=== PATIENT | female | born 1985 | race Two or more races ===

== ENCOUNTER → 2021-05-18 | Outpatient (REF) | LOC: M EMP 16:43 | PROVIDERS: ATTEND Family Medicine | DX: Z20.828 Contact with and (suspected) exposure to other viral communicable diseases (principal) ==

== ENCOUNTER → 2021-05-22 | Outpatient (REF) | LOC: M EMP 08:09 | PROVIDERS: ATTEND Family Medicine | DX: Z20.828 Contact with and (suspected) exposure to other viral communicable diseases (principal) ==

== ENCOUNTER → 2021-10-26 | Outpatient (CLI) | payer OTHER | LOC: M PLARAD 08:04 | PROVIDERS: ATTEND Physician Assistant Medical | DX: D18.03 Hemangioma of intra-abdominal structures (principal); N28.1 Cyst of kidney, acquired ==

== ENCOUNTER → 2022-03-18 | Outpatient (REF) | LOC: M LABSMTC 09:38 | PROVIDERS: ATTEND Family Medicine | DX: Z20.822 Contact with and (suspected) exposure to COVID-19 (principal) ==

== ENCOUNTER → 2023-05-05 | Outpatient (REF) | LOC: M EMP 08:26 | PROVIDERS: ATTEND Family Medicine | DX: Z11.52 Encounter for screening for COVID-19 (principal) ==

== ENCOUNTER 2023-06-05 14:42 | Emergency (ER) | payer OTHER ==
[~2023-06-05] VITALS: Ht 165.1 cm; Wt 89.5 kg
[2023-06-05 15:26] LABS: BASO # 0.1 10^3/uL (0.0-0.2); BASO % 0.6 % (0.0-1.0); EOS # 0.1 10^3/uL (0.0-0.5); EOS % 0.9 % (0.0-3.0); HEMATOCRIT 40.3 % (36.0-47.0); HEMOGLOBIN 13.2 g/dl (12.0-15.5); LYMPH # 2.2 10^3/uL (1.5-5.0); LYMPH % 27.3 % (24.0-44.0); MEAN CORPUSCULAR HEMOGLOBIN 28.2 pg (27.0-33.0); MEAN CORPUSCULAR HGB CONC 32.8 g/dl (32.0-36.5); MEAN CORPUSCULAR VOLUME 86.1 fl (80.0-96.0); MONO # 0.5 10^3/uL (0.0-0.8); MONO % 6.1 % (2.0-8.0); NEUTROPHILS # 5.2 10^3/uL (1.5-8.5); NEUTROPHILS % 64.7 % (36.0-66.0); PLATELET COUNT, AUTOMATED 269 10^3/uL (150-450); RED BLOOD COUNT 4.68 10^6/uL (4.00-5.40)
[2023-06-05 16:03] LABS: ALBUMIN 4.2 G/DL (3.2-5.2); ALKALINE PHOSPHATASE 59 U/L (46-116); ALT/SGPT 19 U/L (7.0-40); AST/SGOT 12 U/L (<34); BILIRUBIN,TOTAL 0.5 MG/DL (0.3-1.2); BLOOD UREA NITROGEN 9 MG/DL (9-23); CALCIUM LEVEL 9.1 MG/DL (8.5-10.1); CARBON DIOXIDE LEVEL 24 MMOL/L (20-31); CHLORIDE LEVEL 107 MMOL/L (98-107); CREATININE FOR GFR 0.68 MG/DL (0.55-1.30); GLOMERULAR FILTRATION RATE > 60.0 (>58); GLUCOSE, FASTING 83 MG/DL (60-100); SODIUM LEVEL 138 MMOL/L (136-145); TOTAL PROTEIN 7.2 G/DL (5.7-8.2)
[2023-06-05] MEDS ORDERED: EMTR1TAB16 PO (16:04)
[2023-06-05] MEDS ORDERED: RALT40TA PO (16:04)
[2023-06-05 16:05] LABS: HCG, SERUM QUALITATIVE NEGATIVE (NEGATIVE)
[2023-06-05 16:06] LABS: HEPATITIS B SURFACE ANTIBODY POSITIVE (POSITIVE)
[2023-06-05] MEDS ORDERED: EXPOSURE KIT-ADULT 7 DAY SUPPLY PO ONE (16:10)
[2023-06-05] MEDS ORDERED: RALTEGRAVIR 400 MG TAB (ISENTRESS) PO ONE (16:15)
[2023-06-05] MEDS ORDERED: TRUVADA 200MG/300MG TABLET PO ONE (16:15)
[2023-06-05 16:31] LABS: HIV SCREEN CENTAUR EXPOSED NEGATIVE (NEGATIVE)
[2023-06-05 16:39] LABS: HEPATITIS C VIRUS ABY INDEX 0.06 INDEX (<0.8)
[2023-06-05 17:00] VITALS: BP 124/74; TEMP 98; O2SAT 99
[2023-06-06] MEDS ORDERED: RALTEGRAVIR 400 MG TAB (ISENTRESS) PO SCH
[2023-06-06] MEDS ORDERED: TRUVADA 200MG/300MG TABLET PO SCH
== END 2023-06-05 17:02 | disposition home or self-care (01) ==
LOC: M ED 14:42
DX: Z77.21 Contact with and (suspected) exposure to potentially hazardous body fluids (principal); W46.0XXA Contact with hypodermic needle, initial encounter; Y92.9 Unspecified place or not applicable; Y93.89 Activity, other specified; Y99.0 Civilian activity done for income or pay; Z79.899 Other long term (current) drug therapy

== ENCOUNTER → 2023-07-31 | Outpatient (CLI) | payer OTHER ==
[~2023-07-31] MED LIST: EMTR1TAB16 PO; RALT40TA PO
== END ==
LOC: M WHC 14:09
PROVIDERS: ATTEND Nurse Practitioner Primary Care
DX: Z12.31 Encounter for screening mammogram for malignant neoplasm of breast (principal)

== ENCOUNTER → 2023-08-04 | Outpatient (CLI) | payer OTHER | LOC: M WHC 15:13 | PROVIDERS: ATTEND Nurse Practitioner Primary Care | DX: Z12.31 Encounter for screening mammogram for malignant neoplasm of breast (principal); R92.333 Mammographic heterogeneous density, bilateral breasts | CPT/HCPCS: 76641; 77065; G0279 ==

== ENCOUNTER → 2023-12-23 | Outpatient (CLI) | payer OTHER ==
[2023-12-23 10:49] LABS: HEMOGLOBIN 12.8 g/dl (12.0-15.5); MEAN CORPUSCULAR VOLUME 87.5 fl (80.0-96.0); PLATELET COUNT, AUTOMATED 294 10^3/uL (150-450); RED BLOOD COUNT 4.57 10^6/uL (4.00-5.40); WHITE BLOOD COUNT 6.8 10^3/uL (4.0-10.0)
[2023-12-23 10:59] LABS: ALKALINE PHOSPHATASE 65 U/L (46-116); ALT/SGPT 18 U/L (7.0-40); AST/SGOT < 8 U/L (<34); BILIRUBIN,TOTAL 0.5 MG/DL (0.3-1.2); BLOOD UREA NITROGEN 12 MG/DL (9-23); CALCIUM LEVEL 9.2 MG/DL (8.5-10.1); CARBON DIOXIDE LEVEL 27 MMOL/L (20-31); CHLORIDE LEVEL 108 MMOL/L (98-107); CHOLESTEROL LEVEL 159 MG/DL (<200); CREATININE FOR GFR 0.78 MG/DL (0.55-1.30); GLOMERULAR FILTRATION RATE > 60.0 (>58); GLUCOSE, FASTING 90 MG/DL (60-100); HDL CHOLESTEROL 54.7 MG/DL (>40); LDL CHOLESTEROL 87.7 MG/DL (<100); NON-HDL-C 104.3 MG/DL; POTASSIUM SERUM 4.5 MMOL/L (3.5-5.1); SODIUM LEVEL 140 MMOL/L (136-145); TOTAL PROTEIN 6.8 G/DL (5.7-8.2); TRIGLYCERIDES LEVEL 83 MG/DL (<150)
[2023-12-23 11:00] LABS: THYROXINE (T4) 8.7 UG/DL (4.5-10.9); TOTAL 25(OH) VITAMIN D 22.6 NG/ML (20.0-100.0)
[2023-12-23 11:01] LABS: THYROID STIMULATING HORMONE 1.499 uIU/ML (0.55-4.78)
[2023-12-23 11:31] LABS: HEMOGLOBIN A1c 5.2 % (4.0-6.0)
== END ==
LOC: M PLALAB 07:13
PROVIDERS: ATTEND Student in an Organized Health Care Education/Training Program
DX: M79.672 Pain in left foot (principal); M77.32 Calcaneal spur, left foot; Z13.9 Encounter for screening, unspecified

== ENCOUNTER → 2024-01-07 | Outpatient (CLI) | payer OTHER | LOC: M WHC 13:21 | PROVIDERS: ATTEND Nurse Practitioner Primary Care | DX: R92.8 Other abnormal and inconclusive findings on diagnostic imaging of breast (principal); R92.311 Mammographic fatty tissue density, right breast ==

== ENCOUNTER 2024-04-27 14:39 | Emergency (ER) | payer OTHER ==
[~2024-04-27] VITALS: Ht 162.6 cm; Wt 85.4 kg
[2024-04-27] MEDS ORDERED: VALA1TAB5 (15:20)
[2024-04-27] MEDS: FLUORESCEIN OPHTH 1MG STRIP OS ONE (15:27)
[2024-04-27] MEDS: KETOROLAC 30 MG/ML 1ML VIAL IV ONE (15:27)
[2024-04-27 15:44] LABS: BASO % 0.5 % (0.0-1.0); EOS # 0.1 10^3/uL (0.0-0.5); EOS % 1.2 % (0.0-3.0); HEMATOCRIT 40.6 % (36.0-47.0); HEMOGLOBIN 12.9 g/dl (12.0-15.5); LYMPH # 1.9 10^3/uL (1.5-5.0); LYMPH % 25.3 % (24.0-44.0); MEAN CORPUSCULAR HEMOGLOBIN 27.6 pg (27.0-33.0); MEAN CORPUSCULAR HGB CONC 31.8 g/dl (32.0-36.5); MEAN CORPUSCULAR VOLUME 86.8 fl (80.0-96.0); MONO # 0.6 10^3/uL (0.0-0.8); MONO % 8.3 % (2.0-8.0); NEUTROPHILS # 4.7 10^3/uL (1.5-8.5); NEUTROPHILS % 64.6 % (36.0-66.0); PLATELET COUNT, AUTOMATED 274 10^3/uL (150-450); RED BLOOD COUNT 4.68 10^6/uL (4.00-5.40); WHITE BLOOD COUNT 7.3 10^3/uL (4.0-10.0)
[2024-04-27 16:02] LABS: ERYTHROCYTE SEDIMENTATION RATE 37 mm/hr (0-20)
[2024-04-27 16:10] LABS: BLOOD UREA NITROGEN 11 MG/DL (9-23); CALCIUM LEVEL 9.4 MG/DL (8.5-10.1); CARBON DIOXIDE LEVEL 26 MMOL/L (20-31); CHLORIDE LEVEL 107 MMOL/L (98-107); CREATININE FOR GFR 0.75 MG/DL (0.55-1.30); GLOMERULAR FILTRATION RATE > 60.0 (>58); GLUCOSE, FASTING 83 MG/DL (60-100); POTASSIUM SERUM 4.6 MMOL/L (3.5-5.1); SODIUM LEVEL 139 MMOL/L (136-145)
[2024-04-27 16:26] LABS: HCG, SERUM QUALITATIVE NEGATIVE (NEGATIVE)
[2024-04-27] MEDS: TETRACAINE 0.5% OPHTH SOLN 4ML OS ONE (18:32)
[2024-04-27] MEDS ORDERED: VALT1TAB PO (18:53)
[2024-04-27 19:00] VITALS: BP 129/73; TEMP 98.5; O2SAT 96
[2024-04-27] MEDS: valACYclovir HCL 500 MG TAB PO ONE (19:12)
== END 2024-04-27 19:16 | disposition home or self-care (01) ==
LOC: M ED 14:39
DX: B02.9 Zoster without complications (principal)
CPT/HCPCS: 80048; 84703; 85025; 85652; 96374; 99284; J1885

== ENCOUNTER → 2024-09-16 | Outpatient (CLI) | payer OTHER ==
[~2024-09-16] MED LIST changes: +VALA1TAB5; +VALT1TAB PO
== END ==
LOC: M WHC 08:42
PROVIDERS: ATTEND Nurse Practitioner Primary Care
DX: R92.8 Other abnormal and inconclusive findings on diagnostic imaging of breast (principal); R92.333 Mammographic heterogeneous density, bilateral breasts
CPT/HCPCS: 76642; 77066; G0279